=== PATIENT | male | born 1930 | race Caucasian/White ===

== ENCOUNTER 2018-02-17 20:40 | Emergency (ER) | payer MEDICARE, OTHER ==
[2018-02-17] MEDS ORDERED: VITAMIN D50000 UNIT PO (20:59)
[2018-02-17] MEDS ORDERED: LEVOTHYROXINE50 MCG PO (20:59)
[2018-02-17 21:42] LABS: BASO % 0.4 % (0.0-1.0); EOS # 0.1 10*3/uL (0.0-0.4); EOS % 1.1 % (1.0-4.0); HEMATOCRIT 34.2 % (42.0-52.0); HEMOGLOBIN 11.3 g/dl (14.0-18.0); LYMPH # 0.5 10*3/uL (1.3-4.4); LYMPH % 8.5 % (27.0-41.0); MEAN CELL VOLUME 93.2 fl (80.0-94.0); MEAN CORPUSCULAR HGB 30.8 pg (27.0-31.0); MEAN PLATELET VOLUME 11.4 fl (9.6-12.3); MONO # 0.5 10*3/uL (0.1-1.0); MONO % 8.3 % (3.0-9.0); NEUT # 4.4 10*3/uL (2.3-7.9); NEUT % 81.5 % (47.0-73.0); PLATELET COUNT AUTOMATED 103 10*3/uL (130-400); RED BLOOD COUNT 3.67 10*6/uL (4.50-5.90); RED CELL DISTRI WIDTH 13.1 % (0-14.5); WHITE BLOOD COUNT 5.4 10*3/uL (4.8-10.8)
[2018-02-17 21:59] LABS: ALBUMIN 3.5 gm/dl (3.1-4.5); ALKALINE PHOSPHATASE 72 U/L (45-117); BUN 25 mg/dl (7-24); CHLORIDE 104 mmol/L (98-107); CREATININE 1.15 mg/dL (0.70-1.30); LIPASE 95 U/L (73-393); SGOT/AST 20 IU/L (3-35); SGPT/ALT 23 U/L (12-78); SODIUM 141 mmol/L (136-145); TOTAL PROTEIN 6.5 gm/dL (6.4-8.2)
[2018-02-17 22:00] LABS: ACT PARTIAL THROMBO TIME 27.8 SECONDS (20.8-31.5)
[2018-02-17 22:02] LABS: ETHYL ALCOHOL < 3.0 mg/dl (<3)
[2018-02-17 22:06] LABS: THYROID STIM HORMONE (HS) 0.794 uIU/ml (0.358-4.75)
== END 2018-02-18 00:42 ==
LOC: ED 20:40
PROVIDERS: Emergency Medicine Emergency Medical Services
DX: F03.90 Unspecified dementia, unspecified severity, without behavioral disturbance, psychotic disturbance, mood disturbance, and anxiety (principal); L84 Corns and callosities; Z79.899 Other long term (current) drug therapy

== ENCOUNTER 2018-09-10 13:45 | Emergency (ER) | payer MEDICARE ==
[~2018-09-10] VITALS: Ht 172.7 cm; Wt 81.6 kg
[~2018-09-10 13:45] MED LIST: LEVOTHYROXINE50 MCG PO; VITAMIN D50000 UNIT PO
== END 2018-09-10 15:47 | disposition home or self-care (01) ==
LOC: ED 13:45
DX: S00.81XA Abrasion of other part of head, initial encounter (principal); Z79.899 Other long term (current) drug therapy; W07.XXXA Fall from chair, initial encounter; Y93.89 Activity, other specified; Y92.129 Unspecified place in nursing home as the place of occurrence of the external cause; Y99.8 Other external cause status

== ENCOUNTER 2018-10-03 05:52 | Emergency (ER) | payer MEDICARE ==
[~2018-10-03] VITALS: Ht 180.3 cm; Wt 81.6 kg
--- NOTE | ~2018-10-03 | EKG ---
[place], [place] ELECTROCARDIOGRAM REPORT NAME: CATIA YATES UNIT #: [id number] ROOM: DOCTOR: EPIPHJESSICA DRAFT REPORT BIRTHDATE: [birth year] [facility] Test Date: 2018-10-03 Test Time: 06:04:40 Pat Name: CATIA YATES Department: Room: Gender: Turn Operator: Jess Holman : 1930 Requested By: EBONY GOMEZ Order Number: [id number] Reading MD: Killian Campbell MD Measurements Intervals [place] Rate: 55 P: -65 GA: 234 QRS: 33 QRSD: 80 T: 61 QT: 433 QTc: 415 Interpretive Statements Sinus or ectopic atrial rhythm Prolonged GA interval Abnormal R-wave progression, early transition Electronically Signed On 10-03-2018 16:35:16 PST by Killian Campbell MD CM:EKGRPT:ELECTROCARDIOGRAM REPORT [id number] EBONY CALDWELL DRAFT REPORT EBONY GOMEZ DO
[2018-10-03 06:12] LABS: BASO % 0.2 % (0.0-1.0); EOS # 0.2 10*3/uL (0.0-0.4); EOS % 4.8 % (1.0-4.0); HEMATOCRIT 31.9 % (42.0-52.0); HEMOGLOBIN 11.1 g/dl (14.0-18.0); LYMPH % 24.2 % (27.0-41.0); MEAN CELL VOLUME 90.9 fl (80.0-94.0); MEAN CORPUSCULAR HGB 31.6 pg (27.0-31.0); MEAN CORPUSCULAR HGB CONC 34.8 g/dl (33.0-37.0); MEAN PLATELET VOLUME 11.1 fl (9.6-12.3); MONO # 0.4 10*3/uL (0.1-1.0); MONO % 10.3 % (3.0-9.0); NEUT # 2.5 10*3/uL (2.3-7.9); NEUT % 60.3 % (47.0-73.0); PLATELET COUNT AUTOMATED 110 10*3/uL (130-400); RED BLOOD COUNT 3.51 10*6/uL (4.50-5.90); RED CELL DISTRI WIDTH 12.4 % (0-14.5); WHITE BLOOD COUNT 4.2 10*3/uL (4.8-10.8)
[2018-10-03 06:13] LABS: BILIRUBIN NEGATIVE (NEGATIVE); BLOOD NEGATIVE (NEGATIVE); CLARITY CLEAR (CLEAR); COLOR YELLOW (YELLOW); GLUCOSE NEGATIVE (NEGATIVE); KETONE NEGATIVE (NEGATIVE); LEUKO ESTERASE NEGATIVE (NEGATIVE); NITRITE NEGATIVE (NEGATIVE); SPECIFIC GRAVITY 1.025 (1.005-1.030); UROBILINOGEN 0.2 E.U./dl (0.2-1.0)
[2018-10-03 06:30] LABS: ALBUMIN 3.5 gm/dl (3.1-4.5); ALKALINE PHOSPHATASE 78 U/L (45-117); BUN 25 mg/dl (7-24); CHLORIDE 107 mmol/L (98-107); CREATININE 1.05 mg/dL (0.70-1.30); POTASSIUM 3.9 mmol/L (3.5-5.1); SGOT/AST 7 IU/L (3-35); SGPT/ALT 18 U/L (12-78); SODIUM 142 mmol/L (136-145); TOTAL PROTEIN 6.3 gm/dL (6.4-8.2)
[2018-10-03 06:38] LABS: TROPONIN I < 0.015 ng/ml (<0.045)
== END 2018-10-03 09:26 ==
LOC: ED 05:52
PROVIDERS: Student in an Organized Health Care Education/Training Program
DX: R41.82 Altered mental status, unspecified (principal); F03.90 Unspecified dementia, unspecified severity, without behavioral disturbance, psychotic disturbance, mood disturbance, and anxiety; Z88.0 Allergy status to penicillin; Z79.899 Other long term (current) drug therapy

== ENCOUNTER 2019-05-03 10:23 | Emergency (ER) | payer MEDICARE ==
[~2019-05-03] VITALS: Ht 182.8 cm; Wt 69.4 kg
[2019-05-03 11:22] LABS: EOS # 0.1 10*3/uL (0.0-0.4); EOS % 2.5 % (1.0-4.0); HEMATOCRIT 34.8 % (42.0-52.0); HEMOGLOBIN 11.7 g/dl (14.0-18.0); LYMPH # 0.6 10*3/uL (1.3-4.4); LYMPH % 16.2 % (27.0-41.0); MEAN CELL VOLUME 94.8 fl (80.0-94.0); MEAN CORPUSCULAR HGB 31.9 pg (27.0-31.0); MEAN CORPUSCULAR HGB CONC 33.6 g/dl (33.0-37.0); MEAN PLATELET VOLUME 10.8 fl (9.6-12.3); MONO # 0.3 10*3/uL (0.1-1.0); MONO % 8.3 % (3.0-9.0); NEUT # 2.9 10*3/uL (2.3-7.9); PLATELET COUNT AUTOMATED 96 10*3/uL (130-400); RED BLOOD COUNT 3.67 10*6/uL (4.50-5.90); RED CELL DISTRI WIDTH 12.2 % (0-14.5)
[2019-05-03 11:34] LABS: BUN 29 mg/dl (7-24); CHLORIDE 110 mmol/L (98-107); CREATININE 1.11 mg/dL (0.70-1.30); SODIUM 143 mmol/L (136-145)
== END 2019-05-03 14:32 | disposition home or self-care (01) ==
LOC: ED 10:23
PROVIDERS: Emergency Medicine
DX: S40.021A Contusion of right upper arm, initial encounter (principal); M54.2 Cervicalgia; I10 Essential (primary) hypertension; F03.90 Unspecified dementia, unspecified severity, without behavioral disturbance, psychotic disturbance, mood disturbance, and anxiety; G30.9 Alzheimer's disease, unspecified; Z88.0 Allergy status to penicillin; Z79.899 Other long term (current) drug therapy; W19.XXXA Unspecified fall, initial encounter; Y93.89 Activity, other specified; Y92.128 Other place in nursing home as the place of occurrence of the external cause; Y99.8 Other external cause status